=== PATIENT | female | born 2000 | race Hispanic/Latino ===

== ENCOUNTER 2020-05-04 07:59 | Inpatient (IN) | payer BC ==
[2020-05-04 08:42] VITALS: BMI 29.8
[2020-05-04 08:42] LABS: Amnisure Test RUPTURE DETECTED (No Rupture)
[2020-05-04 08:44] LABS: Amnisure Internal Control QC ACCEPTABLE (ACCEPTABLE)
[2020-05-04] MEDS ORDERED: Ibuprofen 800 MG TAB PO PRN (08:56)
[2020-05-04] MEDS ORDERED: Ondansetron PF 4 MG/2 ML Vial IVP PRN ×2 (08:56→22:58)
[2020-05-04] MEDS ORDERED: hydrALAZINE 20 MG/ML VIAL SLOW IVP PRN ×2 (08:56→22:58)
[2020-05-04] MEDS ORDERED: Meperidine HCl/PF 25 MG/ML VIAL IM/IV PRN (08:56)
[2020-05-04] MEDS ORDERED: Lidocaine 1% (PF) 30 ML VIAL SC PRN (08:56)
[2020-05-04] MEDS ORDERED: HYDROcodone/Acetaminophen 5/325 mg Tablet PO PRN ×2 (08:56)
[2020-05-04] MEDS ORDERED: Promethazine HCl 25 MG/ML VIAL IM PRN (08:56)
[2020-05-04] MEDS ORDERED: NS / Oxytocin 40 units/1000ml 1,000 ML IV PRN (08:56)
[2020-05-04] MEDS ORDERED: Lactated Ringer's 1,000 ML IV SCH ×2 (09:00)
[2020-05-04] MEDS ORDERED: NS w/ Oxytocin 10 units 500 ML IV SCH (09:00)
--- NOTE | 2020-05-04 09:09 | PDOC.LDHP ---
Labor and Delivery H&P Chief complaint: contractions, loss of fluid HPI: 20 yo LAF presents c/o SROM clear at 0630 now with UCS q 3 mins. Current gestational age (weeks): 39 Due date: 05/11/20 Dating criteria: last menstrual period Grav: 1 Para: 0 OB History Details: PNC with Dr. Harvey, no reported complications. Current complications: none Abnormal US findings: No Past Medical History: none Previous surgical history: none Allergies/Adverse Reactions: Allergies Allergy/AdvReac Type Severity Reaction Status Date / Time No Known Allergies Allergy Verified 05/04/20 08:37 Social history: none - Physical Exam Vital signs reviewed and normal: yes General: breathing through contractions Heart: RRR Lungs: nonlabored breathing Abdomen: gravid Extremeties: trace edema FHT: category 1 [place] contractions every: q 2-4 mins - Vaginal Exam cm dilated: 2 Effacement: 75% Station: -2 - OB Labs Blood type: O RH: positive Antibody Screen: negative RPR: negative HEPSAg: negative GBS: negative Rubella: immune - Assessment L&D Assessment: term rupture in membranes - Plan Plan: admit to L&D, labor augmentation if indicated, informed consent obtained, anesthesia consult for pain management, other (Dr. Harvey notified, wants OB to manage.)
[2020-05-04 10:20] LABS: Hemoglobin 10.6 g/dL (12.0-16.0); Mean Corpuscular Hemoglobin 21.5 pg (25.0-35.0); Mean Corpuscular Volume 67.4 fL (78.0-98.0); Mean Platelet Volume 11.2 fL (7.4-10.4); Platelet Count 122 thou/uL (130-400); RBC Distribution Width 15.2 % (11.5-14.5); Red Blood Cell (RBC) Count 4.92 mill/uL (4.00-5.20); White Blood Cell (WBC) Count 10.3 thou/uL (4.8-10.8)
[2020-05-04 10:24] LABS: HBSAg Index 0.18 S/CO (0-0.99); HIV (1/2) Antibody/Antigen Non-Reactive (NonReactive); HIV 1/2 INDEX 0.16 S/CO (<1.00); Hep B Surf Ag Non-Reactive S/CO (NonReactive)
[2020-05-04] MEDS: Butorphanol Tartrate 1 MG/ML VIAL SLOW IVP PRN ×2 (11:05→13:38)
[2020-05-04 11:13] LABS: Syphilis Antibody Nonreactive (Nonreactive); Syphilis Antibody Index 0.03 S/CO (<1.00 Non-Reactive)
--- NOTE | 2020-05-04 11:58 | PDOC.EVN ---
Event Note - Event Note Event Note: SVE remains 2 cm, now 90% effaced per RN exam FHTs stable, no decels. UCs q 2-4 mins. Plan: Begin pitocin, watch progress.
[2020-05-04] MEDS ORDERED: Bupivacaine 0.5% 20 ML, fentaNYL Citrate/PF 400 MCG in Sodium Chloride 0.9% 72 ML EPIDURAL SCH (15:30)
[2020-05-04] MEDS ORDERED: DISCONTINUE ALL PREVIOUS NARCOTICS FS SCH (15:30)
--- NOTE | 2020-05-04 16:34 | PDOC.EVN ---
Event Note - Event Note Event Note: Comfortable with epidural. SVE per RN= c/c/-1 vtx. FHTs stable, variables seen earlier resolved. Ucs q 3 mins. Pit off. Plan: Allow jocelyne labor down prior to pushing, restart pitocin if needed.
[2020-05-04] MEDS ORDERED: Lidocaine 1% (PF) 30 ML VIAL ONE (17:29)
--- NOTE | 2020-05-04 20:05 | PDOC.OPDEL ---
OB Operative/Delivery Note Delivery Dr/Surgeon: Brenna Assist: Lc Pre-Delivery Diagnosis: active labor Procedure/Post Delivery Dx: spontaneous vaginal delivery Weeks gestation: 39 Anesthesia: epidural - Additional Findings/Plan Placenta delivered: spontaneous Repaired Obstetrical Laceration: 2nd degree Estimated blood loss: 300 cc, QBL pending Compilations/Other Findings: of viable female OA. Apgars 9/9. Placenta intact Anup. Small ML laceration repaired with 2-0 chromic. Small right periuretral laceration not bleeding and did not require repair. Baby and mom to recover in L&D.
[2020-05-04 22:15] LABS: SARS-CoV-2 MS2 Positive; SARS-CoV-2 N Gene Negative; SARS-CoV-2 S Gene Negative; SARS-CoV-2 by NAA Not Detected (NotDetected); SARS-CoV-2 orf1ab Negative
[2020-05-04] MEDS ORDERED: Milk Of Magnesia 30 ML UDCUP PO PRN (22:58)
[2020-05-04] MEDS ORDERED: Benzocaine-Menthol 82.5 ML CAN TOP PRN (22:58)
[2020-05-04] MEDS ORDERED: Preparation H Ointment 28 GM TUBE PR PRN (22:58)
[2020-05-04] MEDS ORDERED: NS / Oxytocin 40 units/1000ml 1,000 ML IV SCH (22:58)
[2020-05-04] MEDS ORDERED: diphenhydrAMINE 25 MG CAP PO PRN (22:58)
[2020-05-04] MEDS ORDERED: Bisacodyl 10 MG SUPP PR PRN (22:58)
[2020-05-04] MEDS ORDERED: Lanolin Ointment 7 GM TUBE TOP PRN (22:58)
[2020-05-04] MEDS ORDERED: Docusate Calcium (SURFAK) 240 MG CAP PO SCH (23:15)
[2020-05-04] MEDS ORDERED: Ibuprofen 800 MG TAB PO SCH (23:15)
--- NOTE | 2020-05-05 05:10 | PDOC.PP ---
Post Progress Note Post Day #: 1 Subjective: yesterday evening. Feeling well. No complaints. PO intake tolerated: yes Ambulation: yes Vital Signs (12 hours) Temp Pulse Resp BP Pulse Ox 05/05/20 03:25 98.2 F 87 16 103/53 L 05/04/20 23:50 98.8 F 90 16 119/70 98 Weight Weight 71.668 kg - Physical Examination General: NAD Cardiovascular: RRR Respiratory: non-labored breathing Abdominal: appropriately TTP Neurological: no gross focal deficits Psychiatric: A&Ox3 Result Diagrams: 05/04/20 09:28 Additional Labs: Post Labs Hep Bs Antigen Non-Reactive S/CO (NonReactive) 05/04/20 09:28 Blood Type O POSITIVE 05/04/20 10:31 - Assessment/Plan Term - Delivered via - PPD1 - Progressing well, no complaints - 2nd degree lac repaired and hemostatic periurethrals - no vaginal pain, minimal lochia - No further fevers, no current signs/sx of infection - expect DC home tomorrow Addendum - Attending - Attending Attestation Date/Time: 05/05/20 0656 I personally evaluated the patient and discussed the management with Dr. Platt. I agree with the History, Examination, Assessment and Plan documented above.
[2020-05-05] MEDS: Ibuprofen 800 MG TAB PO SCH ×3 (05:29→21:13)
[2020-05-05] MEDS ORDERED: Adacel (T-DAP) 0.5 ML SYRINGE IM ONE (09:00)
[2020-05-05] MEDS: Ferrous Sulfate 325 MG TAB PO SCH ×2 (11:48→16:57)
[2020-05-05] MEDS: Docusate Calcium (SURFAK) 240 MG CAP PO SCH ×2 (11:48→21:14)
[2020-05-05] MEDS: Prenatal Vitamin 1 TAB PO SCH (11:48)
[2020-05-06] MEDS: Ibuprofen 800 MG TAB PO SCH (06:12)
--- NOTE | 2020-05-06 06:57 | PDOC.PP ---
Post Progress Note Post Day #: 2 Subjective: PP day #2, tolerating PP course very well. Denies vaginal pain but states her body feels sore. Pain controlled with motrin and tylenol light lochia amount of spotting. bonding well with infant. PO intake tolerated: yes Flatus: yes Ambulation: yes Vital Signs (12 hours) Temp Pulse Resp BP Pulse Ox 05/05/20 21:06 98.1 F 94 18 135/74 99 Weight Weight 71.668 kg - Physical Examination General: NAD Cardiovascular: no m/r/g, RRR Respiratory: clear to auscultation bilaterally, non-labored breathing Abdominal: + bowel sounds, lochia, no distention, appropriately TTP Extremities: negative homans (B) Skin: no rash Neurological: no gross focal deficits Psychiatric: A&Ox3, normal affect Result Diagrams: 05/04/20 09:28 Additional Labs: Post Labs Hep Bs Antigen Non-Reactive S/CO (NonReactive) 05/04/20 09:28 Blood Type O POSITIVE 05/04/20 10:31 (1) Vaginal delivery Code(s): O80 - ENCOUNTER FOR FULL-TERM UNCOMPLICATED DELIVERY Status: Acute - Assessment/Plan Term - Delivered via PP day #2 - PPD2 - Pain well controlled - 2nd degree lac repaired and hemostatic periurethrals - no vaginal pain, minimal lochia - Normal VS's, no current signs/sx of infection Dispo: plan for DC home today
[2020-05-06] MEDS: Ferrous Sulfate 325 MG TAB PO SCH (09:12)
[2020-05-06] MEDS: Prenatal Vitamin 1 TAB PO SCH (09:15)
[2020-05-06] MEDS: Docusate Calcium (SURFAK) 240 MG CAP PO SCH (09:15)
[2020-05-06 09:36] VITALS: BP 127/67; TEMP 98.4
== END 2020-05-06 12:52 | disposition home or self-care (01) | DRG 807 ==
LOC: L&D/OP 07:59 → L&D 12:12 → 3SW 23:52
PROVIDERS: ADMIT Obstetrics & Gynecology; ATTEND Obstetrics & Gynecology
PROC: 10E0XZZ Delivery of Products of Conception, External Approach (ICD-10-PCS; principal; 2020-05-04)
PROC: 0KQM0ZZ Repair Perineum Muscle, Open Approach (ICD-10-PCS; 2020-05-04)
DX: O70.1 Second degree perineal laceration during delivery (principal); Z37.0 Single live birth; Z3A.39 39 weeks gestation of pregnancy; Z20.828 Contact with and (suspected) exposure to other viral communicable diseases
CPT/HCPCS: 36415; 51702; 84112; 85027; 86780; 86850; 86900; 86901; 87340; 87389; 87635; 99285; J0595; J2590; J3010; J3490; U0003